=== PATIENT | male | born 1990 | race African-American/Black ===

== ENCOUNTER 2017-04-20 21:24 | Emergency (ER) | payer SELFPAY ==
[~2017-04-20] VITALS: Ht 177.8 cm; Wt 80.0 kg
[2017-04-20 21:33] VITALS: BP 163/103; PULSE 58; RESP 16; TEMP 98.4; O2SAT 99
[2017-04-20] MEDS ORDERED: SODIUM CHLORIDE 0.9% FLUSH 10 ML FLUSH IV FLUSH PRN (21:45)
[2017-04-20] MEDS ORDERED: MORPHINE SULFATE 4 MG/ML INJ IV PUSH ONE (21:45)
[2017-04-20] MEDS ORDERED: ONDANSETRON HCL 4 MG/2 ML VIAL IVP ONE (21:45)
--- NOTE | 2017-04-20 21:48 | PD ---
HPI Chief Complaint: Abdominal Pain Time Seen by Provider: 21:42 Travel History International Travel<30 days: No Contact w/Intl Traveler<30days: No Traveled to known affect area: No History of Present Illness HPI Patient comes in complaining of sharp stabbing abdominal pain around his umbilicus that began shortly prior to arrival. Pain radiates throughout his abdomen. Patient denies any vomiting, loss or change in bowel or bladder, chest pain, shortness breath, headache, back pain, or fevers. Patient denies doing anything for this or history of abdominal surgeries. FORMERLY [facility] Past Medical History Medical History: Denies Significant Hx Diminished Hearing: No Immunizations Current: Yes Past Surgical History Surgical History: No Previous Surgery Social History Alcohol Use: Yes ([facility]) Tobacco Use: No Substance Use: No Allergies-Medications (Allergen,Severity, Reaction): Coded Allergies: No Known Allergies (Unverified , 04/20/17) Reported Meds & Prescriptions Reported Meds & Active Scripts Active No Active Prescriptions or Reported Medications Review of Systems Except as stated in HPI: all other systems reviewed are Neg Physical Exam Narrative GENERAL: Well-developed, well nourished, in mild distress, and non-ill appearing. SKIN: Focused skin assessment warm and dry. HEAD: Atraumatic. Normocephalic. EYES: Pupils equal and round. EOMI. No scleral icterus. No injection or drainage. ENT: No nasal bleeding or discharge. Mucous membranes pink and moist. NECK: Trachea midline. Supple. No nuclear rigidity. CARDIOVASCULAR: Regular rate and rhythm. No murmur appreciated. RESPIRATORY: No accessory muscle use. No respiratory distress. Clear to auscultation. Breath sounds equal bilaterally. GASTROINTESTINAL: Abdomen soft, nondistended, without guarding. Hepatic and splenic margins not palpable. Normal bowel sounds 4. No pulsatile mass. Patient reports to palpation throughout his abdomen greatest around the umbilicus and left lower quadrant. GENITOURINARY: Circumcised. Testes descended bilaterally without evidence of rotation. No lesions or erythema. No urethral discharge. Exam was performed presence of staff nurse midwifeQUINTON Resendiz at all times. MUSCULOSKELETAL: No obvious deformities. No clubbing. No cyanosis. No edema. Full range of motion. NEUROLOGICAL: Awake and alert. No obvious cranial nerve deficits. Motor grossly within normal limits. Normal speech. PSYCHIATRIC: Appropriate mood and affect; insight and judgment normal. Data Data Last Documented VS Vital Signs Date Time Temp Pulse Resp B/P Pulse Ox O2 Delivery O2 Flow Rate FiO2 04/20/17 23:14 16 04/20/17 21:33 98.4 58 163/103 99 Orders Complete Blood Count With Diff (04/20/17 21:36) Comprehensive Metabolic Panel (04/20/17 21:36) Lipase (04/20/17 21:36) Iv Access Insert/Monitor (04/20/17 21:36) Ecg Monitoring (04/20/17 21:36) Oximetry (04/20/17 21:36) Morphine Inj (Morphine Inj) (04/20/17 21:45) Ondansetron Inj (Zofran Inj) (04/20/17 21:45) Sodium Chloride 0.9% Flush (Ns Flush) (04/20/17 21:45) Ct Abd/Pel W Iv Contrast(Rout) (04/20/17 ) Chest, Single Ap (04/20/17 21:43) Iohexol 350 Inj (Omnipaque 350 Inj) (04/20/17 22:15) Sodium Chlor 0.9% 1000 Ml Inj (Ns 1000 M (04/20/17 22:45) Docusate Sodium (Colace) (04/20/17 22:45) Magnesium Citrate Liq (Citroma Liq) (04/20/17 22:45) Labs Laboratory Tests Test 04/20/17 21:43 White Blood Count 5.7 TH/MM3 Red Blood Count 5.03 MIL/MM3 Hemoglobin 14.0 GM/DL Hematocrit 40.9 % Mean Corpuscular Volume 81.3 FL Mean Corpuscular Hemoglobin 27.9 PG Mean Corpuscular Hemoglobin 34.3 % Concent Red Cell Distribution Width 12.8 % Platelet Count 177 TH/MM3 Mean Platelet Volume 8.0 FL Neutrophils (%) (Auto) 33.7 % Lymphocytes (%) (Auto) 56.0 % Monocytes (%) (Auto) 8.7 % Eosinophils (%) (Auto) 1.0 % Basophils (%) (Auto) 0.6 % Neutrophils # (Auto) 1.9 TH/MM3 Lymphocytes # (Auto) 3.2 TH/MM3 Monocytes # (Auto) 0.5 TH/MM3 Eosinophils # (Auto) 0.1 TH/MM3 Basophils # (Auto) 0.0 TH/MM3 CBC Comment DIFF FINAL Differential Comment Sodium Level 137 MEQ/L Potassium Level 3.9 MEQ/L Chloride Level 103 MEQ/L Carbon Dioxide Level 24.5 MEQ/L Anion Gap 10 MEQ/L Blood Urea Nitrogen 11 MG/DL Creatinine 1.04 MG/DL Estimat Glomerular Filtration 105 ML/MIN Rate Random Glucose 108 MG/DL Calcium Level 8.7 MG/DL Total Bilirubin 0.2 MG/DL Aspartate Amino Transf 24 U/L (AST/SGOT) Alanine Aminotransferase 26 U/L (ALT/SGPT) Alkaline Phosphatase 71 U/L Total Protein 7.4 GM/DL Albumin 3.7 GM/DL Lipase 177 U/L MDM Medical Decision Making Medical Screen Exam Complete: Yes Emergency Medical Condition: Yes Interpretation(s) Chest x-ray read by the radiologist shows: No evidence of acute cardiopulmonary disease. CT the abdomen and pelvis her by the radiologist shows: Apparent constipation. Otherwise normal CT of the abdomen and pelvis. Differential Diagnosis Pancreatitis, appendicitis, diverticulitis, bowel perforation, electrolyte abnormality, dehydration, small bowel obstruction, ileus, constipation, other Narrative Course The patient presented with nonspecific abdominal pain. There was no significant history of vomiting or diarrhea and no fever. Laboratory and CT evaluation revealed constipation with no other significant abnormalities. There was no evidence of an acute, surgical abdomen at this time. There was no clinical evidence to support appendicitis, bowel obstruction, cholecystitis/ cholelithiasis, pancreatitis, perforation of gastric ulcer, colitis, diverticulitis, bacterial peritonitis, obstruction, volvulus, hernial incarceration or strangulation at this time. There was no evidence to support vascular pathology such as AAA, mesenteric ischemia. There was also no clinical evidence by history, exam or risk factors to suggest atypical presentation of cardiac disease such as ACS, AMI or atypical angina. No evidence to suggest genitourinary etiology as well. Clinical picture was discussed with the patient , as well as plan of care. The patient was instructed to follow up with their physician. Abdominal pain warnings were discussed with the patient. The patient is to return if worsens, pain worsens or changes, develop fever, inability to tolerate fluids with or without vomiting, unable to establish follow up or as needed. The patient agrees with plan. Patient in no obvious distress upon re-evaluation. All pertinent laboratory/ Radiology result(s) discussed with patient. Discussed patient with Dr. Iverson, who saw and evaluated the patient and is in agreement with plan of care and disposition. Any questions/concerns in reference to patient diagnosis/ condition discussed and clarified prior to patient's discharge. Reinforced sheer importance of close follow up with patient's primary physician or primary care clinic and/or GI. Instructed patient to return to ED immediately, if symptoms return/worsen. Pt showed understanding of above instructions. Further instructions and recommendations were detailed in discharge paperwork. Pt ambulated without difficulty out of ED at discharge. Diagnosis Primary Impression: Constipation Qualified Code: K59.00 - Constipation, unspecified constipation type Patient Instructions: Constipation (ED), General Instructions Additional Instructions: Follow-up with your primary care physician and/or GI doctor in one to 5 days. Use [id number] stool softeners and/or laxatives as needed to promote bowel movements. Follow instructions on the packaging. Return to the emergency department if symptoms get worse. Scripts No Active Prescriptions or Reported Meds Disposition: 01 DISCHARGE HOME Condition: Stable Mariano Ocasio Apr 20, 2017 21:48
[2017-04-20 21:59] LABS: AUTOMATED NEUTROPHIL # 1.9 TH/MM3 (1.8-7.7); BASOPHIL % 0.6 % (0.0-2.0); EOSINOPHIL # 0.1 TH/MM3 (0-0.4); HEMATOCRIT 40.9 % (39.0-51.0); HEMO FLAGS DIFF FINAL; LYMPHOCYTE # 3.2 TH/MM3 (1.0-4.8); MEAN CELL VOLUME 81.3 FL (80.0-100.0); MEAN CORPUSCULAR HEMOGLOBIN 27.9 PG (27.0-34.0); MEAN CORPUSCULAR HGB CONC 34.3 % (32.0-36.0); MONO % 8.7 % (0.0-8.0); NEUT % 33.7 % (16.0-70.0); PLATELET COUNT 177 TH/MM3 (150-450); RED BLOOD COUNT 5.03 MIL/MM3 (4.50-5.90); RED CELL DISTRIBUTION WIDTH 12.8 % (11.6-17.2); WHITE BLOOD COUNT 5.7 TH/MM3 (4.0-11.0)
--- NOTE | 2017-04-20 21:59 | RADRPT ---
EXAM DATE/TIME: 04/20/2017 21:39 [facility] COMPARISON: No previous studies available for comparison. INDICATIONS : Lower chest pain today. MEDICAL HISTORY : None. SURGICAL HISTORY : None. ENCOUNTER: Initial ACUITY: 1 day PAIN SCORE: 10/10 LOCATION: Bilateral lower chest FINDINGS: A single view of the chest demonstrates the lungs to be symmetrically aerated without evidence of mas s, infiltrate or effusion. The cardiomediastinal contours are unremarkable. Osseous structures are intact. CONCLUSION: No evidence of acute cardiopulmonary disease. Florentin De Jesus MD on April 20, 2017 at 21:57 Board Certified Radiologist. This report was verified electronically.
[2017-04-20] MEDS ORDERED: IOHEXOL 350 MG/ML 10 ML VIAL (for RAD DIAG) IV ONE (22:15)
--- NOTE | 2017-04-20 22:22 | RADRPT ---
EXAM DATE/TIME: 04/20/2017 22:10 [facility] COMPARISON: No previous studies available for comparison. INDICATIONS : Diffuse abdominal pain. IV CONTRAST: 97 cc Omnipaque 350 (iohexol) IV ORAL CONTRAST: No oral contrast ingested. RADIATION DOSE: 6.64 CTDIvol (mGy) MEDICAL HISTORY : None SURGICAL HISTORY : None. ENCOUNTER: Initial ACUITY: 1 day PAIN SCALE: 10/10 LOCATION: All quadrants TECHNIQUE: Volumetric scanning of the abdomen and pelvis was performed. Using automated exposure control and ad justment of the mA and/or kV according to patient size, radiation dose was kept as low as reasonably achievable to obtain optimal diagnostic quality images. FINDINGS: LOWER LUNGS: The visualized lower lungs are clear. LIVER: Homogeneous density without lesion. There is no dilation of the biliary tree. No calcified gallston es. SPLEEN: Normal size without lesion. PANCREAS: Within normal limits. KIDNEYS: Normal in size and shape. There is no mass, stone or hydronephrosis. ADRENAL GLANDS: Within normal limits. VASCULAR: There is no aortic aneurysm. BOWEL/MESENTERY: The stomach, small bowel, and colon demonstrate no acute abnormality. There is no free intraperitone al air or fluid. The appendix is well-visualized and appears normal. Moderate stool in the rectum. ABDOMINAL WALL: Within normal limits. RETROPERITONEUM: There is no lymphadenopathy. BLADDER: No wall thickening or mass. REPRODUCTIVE: Within normal limits. INGUINAL: There is no lymphadenopathy or hernia. MUSCULOSKELETAL: Normal osseous structures. CONCLUSION: Apparent constipation. Otherwise normal CT of the abdomen and pelvis. Florentin De Jesus MD on April 20, 2017 at 22:19 Board Certified Radiologist. This report was verified electronically.
[2017-04-20 22:28] LABS: ALKALINE PHOSPHATASE 71 U/L (45-117); TOTAL BILIRUBIN ADULT 0.2 MG/DL (0.2-1.0)
[2017-04-20 22:39] LABS: ALT (GPT) 26 U/L (12-78); ANION GAP 10 MEQ/L (5-15); AST (GOT) 24 U/L (15-37); BICARBONATE 24.5 MEQ/L (21.0-32.0); BLOOD UREA NITROGEN 11 MG/DL (7-18); CHLORIDE 103 MEQ/L (98-107); GLOMERULAR FILTRATION RATE 105 ML/MIN (>89); POTASSIUM 3.9 MEQ/L (3.5-5.1); SODIUM (NA) 137 MEQ/L (136-145)
[2017-04-20] MEDS ORDERED: DOCUSATE SODIUM 100 MG CAP PO ONE (22:45)
[2017-04-20] MEDS ORDERED: SODIUM CHLOR 0.9% 1000 ML INJ 1,000 ML IV ONE (22:45)
[2017-04-20] MEDS ORDERED: MAGNESIUM CITRATE SOLN 300 ML BTL PO ONE (22:45)
[2017-04-20 23:14] VITALS: RESP 16
--- NOTE | 2017-04-21 00:08 | PD ---
Data Data Last Documented VS Vital Signs Date Time Temp Pulse Resp B/P Pulse Ox O2 Delivery O2 Flow Rate FiO2 04/20/17 23:14 16 04/20/17 21:33 98.4 58 163/103 99 Orders Complete Blood Count With Diff (04/20/17 21:36) Comprehensive Metabolic Panel (04/20/17 21:36) Lipase (04/20/17 21:36) Iv Access Insert/Monitor (04/20/17 21:36) Ecg Monitoring (04/20/17 21:36) Oximetry (04/20/17 21:36) Morphine Inj (Morphine Inj) (04/20/17 21:45) Ondansetron Inj (Zofran Inj) (04/20/17 21:45) Sodium Chloride 0.9% Flush (Ns Flush) (04/20/17 21:45) Ct Abd/Pel W Iv Contrast(Rout) (04/20/17 ) Chest, Single Ap (04/20/17 21:43) Iohexol 350 Inj (Omnipaque 350 Inj) (04/20/17 22:15) Sodium Chlor 0.9% 1000 Ml Inj (Ns 1000 M (04/20/17 22:45) Docusate Sodium (Colace) (04/20/17 22:45) Magnesium Citrate Liq (Citroma Liq) (04/20/17 22:45) Labs Laboratory Tests Test 04/20/17 21:43 White Blood Count 5.7 TH/MM3 Red Blood Count 5.03 MIL/MM3 Hemoglobin 14.0 GM/DL Hematocrit 40.9 % Mean Corpuscular Volume 81.3 FL Mean Corpuscular Hemoglobin 27.9 PG Mean Corpuscular Hemoglobin 34.3 % Concent Red Cell Distribution Width 12.8 % Platelet Count 177 TH/MM3 Mean Platelet Volume 8.0 FL Neutrophils (%) (Auto) 33.7 % Lymphocytes (%) (Auto) 56.0 % Monocytes (%) (Auto) 8.7 % Eosinophils (%) (Auto) 1.0 % Basophils (%) (Auto) 0.6 % Neutrophils # (Auto) 1.9 TH/MM3 Lymphocytes # (Auto) 3.2 TH/MM3 Monocytes # (Auto) 0.5 TH/MM3 Eosinophils # (Auto) 0.1 TH/MM3 Basophils # (Auto) 0.0 TH/MM3 CBC Comment DIFF FINAL Differential Comment Sodium Level 137 MEQ/L Potassium Level 3.9 MEQ/L Chloride Level 103 MEQ/L Carbon Dioxide Level 24.5 MEQ/L Anion Gap 10 MEQ/L Blood Urea Nitrogen 11 MG/DL Creatinine 1.04 MG/DL Estimat Glomerular Filtration 105 ML/MIN Rate Random Glucose 108 MG/DL Calcium Level 8.7 MG/DL Total Bilirubin 0.2 MG/DL Aspartate Amino Transf 24 U/L (AST/SGOT) Alanine Aminotransferase 26 U/L (ALT/SGPT) Alkaline Phosphatase 71 U/L Total Protein 7.4 GM/DL Albumin 3.7 GM/DL Lipase 177 U/L [facility] Supervised Visit with SUSIE: Yes Narrative Course The history, exam, and medical decision-making in the associated midlevel provider note were completed with my assistance. I reviewed and agree with the findings presented. I attest that I had a [id number] encounter with the patient on the same day, and personally performed and documented my assessment and findings in the medical record. *My assessment and Findings: This is a 26-year-old male who presents to the emergency department with abdominal discomfort. He is quite uncomfortable upon arrival. He is diffusely tender. An upright plain film was obtained to rule out perforated viscus. CT abdomen and pelvis was obtained which demonstrates constipation. Patient will be discharged with laxatives and can follow-up with a primary care physician. The physician mortgage loan assistant did perform a exam which was unremarkable and there is no concern for testicular torsion. Diagnosis Primary Impression: Constipation Qualified Code: K59.00 - Constipation, unspecified constipation type Patient Instructions: General Instructions, Constipation (ED) Departure Forms: Tests/Procedures Additional Instruction: Follow-up with your primary care physician and/or GI doctor in one to 5 days. Use [id number] stool softeners and/or laxatives as needed to promote bowel movements. Follow instructions on the packaging. Return to the emergency department if symptoms get worse. Scripts No Active Prescriptions or Reported Meds Disposition: 01 DISCHARGE HOME Condition: Stable Su Iverson MD Apr 21, 2017 00:08
== END 2017-04-21 00:19 | disposition home or self-care (01) ==
LOC: NEPE 21:24
DX: K59.00 Constipation, unspecified (principal)
CPT/HCPCS: 71010; 74177; 80053; 83690; 85025; 96361; 96374; 96375; 99285; J2270; J2405; J7030; Q9967